=== PATIENT | female | born 1945 | race Hispanic/Latino ===

== ENCOUNTER 2020-09-29 10:35 | Inpatient (IN) | payer MEDICARE ==
[2020-09-29] MEDS ORDERED: Lidocaine 1% w/Epinephrine 1:100K 20 ML VIAL ONE (11:40)
[2020-09-29 14:44] LABS: #Eosinphils 0.3 thou/uL (0.0-0.7); #Lymphocytes 1.5 thou/uL (1.20-3.40); #Monocytes 0.7 thou/uL (0.11-0.59); #Neutrophils 7.6 thou/uL (1.40-6.50); %Eosinophils 2.9 % (0.0-10.0); %Lymphocytes 15.2 % (21.0-51.0); %Monocytes 6.5 % (0.0-10.0); %Neutrophils 75.4 % (42.0-75.0); Hemoglobin 12.3 g/dL (12.0-16.0); Mean Corpuscular Hemoglobin 32.1 pg (27.0-31.0); Mean Corpuscular Volume 97.3 fL (78.0-98.0); Mean Platelet Volume 7.8 fL (7.4-10.4); Platelet Count 208 thou/uL (130-400); RBC Distribution Width 12.9 % (11.5-14.5); Red Blood Cell (RBC) Count 3.85 mill/uL (4.20-5.40); White Blood Cell (WBC) Count 10.1 thou/uL (4.8-10.8)
[2020-09-29 15:13] LABS: ALT (SGPT) 13 U/L (8-55); AST (SGOT) 24 U/L (5-34); Albumin 3.7 g/dL (3.4-4.8); Alkaline Phosphatase 140 U/L (40-110); Anion Gap 16 mmol/L (10-20); BUN (Urea Nitrogen) 35 mg/dL (9.8-20.1); Bilirubin, Total 0.4 mg/dL (0.2-1.2); Calc. Creatinine Clearance 0 mL/min (70-130); Calcium 10.4 mg/dL (7.8-10.44); Carbon Dioxide 22 mmol/L (23-31); Chloride 102 mmol/L (98-107); Globulin 5.2 g/dL (2.4-3.5); Glucose 113 mg/dL (83-110); Potassium 3.8 mmol/L (3.5-5.1); Protein, Total 8.9 g/dL (5.8-8.1); Sodium 136 mmol/L (136-145)
[2020-09-29 16:16] VITALS: BMI 36.0
[2020-09-29] MEDS ORDERED: Acetaminophen 325 MG TAB PO PRN (16:30)
[2020-09-29] MEDS ORDERED: Ondansetron ODT 4 MG TAB SL PRN (16:30)
[2020-09-29] MEDS ORDERED: Ondansetron PF 4 MG/2 ML Vial IVP PRN (16:30)
[2020-09-29] MEDS ORDERED: HYDROcodone/Acetaminophen 5/325 mg Tablet PO PRN (16:30)
[2020-09-29] MEDS: Sodium Chloride 0.9% 1,000 ML IV SCH (17:47)
[2020-09-30] MEDS ORDERED: Milk Of Magnesia 30 ML UDCUP PO PRN (09:43)
[2020-09-30] MEDS ORDERED: Fentanyl 100 MCG/2 ML VIAL SLOW IVP PRN (09:43)
[2020-09-30] MEDS ORDERED: Communication Order-Pharmacy FS SCH (09:45)
[2020-09-30] MEDS ORDERED: CEFAZOLIN 2 GM in Premix Bag 1 BAG IVPB SCH (10:00)
[2020-09-30] MEDS: Sodium Chloride 0.9% 1,000 ML IV SCH (18:33)
[2020-09-30] MEDS: Atorvastatin Calcium 10 MG TAB PO SCH (20:13)
[2020-09-30] MEDS ORDERED: Simvastatin 20 MG TAB PO SCH (21:00)
[2020-10-01 05:30] LABS: #Basophils 0.1 thou/uL (0.0-0.2); #Eosinphils 0.3 thou/uL (0.0-0.7); #Lymphocytes 1.1 thou/uL (1.20-3.40); #Monocytes 0.6 thou/uL (0.11-0.59); #Neutrophils 5.3 thou/uL (1.40-6.50); %Basophils 0.7 % (0.0-1.0); %Eosinophils 3.9 % (0.0-10.0); %Lymphocytes 15.4 % (21.0-51.0); %Monocytes 7.5 % (0.0-10.0); %Neutrophils 72.5 % (42.0-75.0); Mean Corpuscular HGB CONC 32.8 g/dL (32.0-36.0); Mean Corpuscular Hemoglobin 32.2 pg (27.0-31.0); Mean Corpuscular Volume 97.9 fL (78.0-98.0); Mean Platelet Volume 7.5 fL (7.4-10.4); Platelet Count 197 thou/uL (130-400); Red Blood Cell (RBC) Count 3.44 mill/uL (4.20-5.40); White Blood Cell (WBC) Count 7.4 thou/uL (4.8-10.8)
[2020-10-01 05:57] LABS: Anion Gap 12 mmol/L (10-20); BUN (Urea Nitrogen) 31 mg/dL (9.8-20.1); Calc. Creatinine Clearance 43 mL/min (70-130); Calcium 9.8 mg/dL (7.8-10.44); Carbon Dioxide 24 mmol/L (23-31); Chloride 105 mmol/L (98-107); Glucose 94 mg/dL (83-110); Sodium 137 mmol/L (136-145)
[2020-10-01 06:55] LABS: SARS-CoV-2 NAA Rapid Test Not Detected (NotDetected)
[2020-10-01] MEDS ORDERED: Apixaban 2.5 MG TAB PO SCH (09:00)
[2020-10-01] MEDS ORDERED: Non-Formulary Item 1 EACH (Calcitriol [Calcitriol] 0.5 MCG Capsule) PO SCH (09:00)
[2020-10-01] MEDS ORDERED: Non-Formulary Item 1 EACH (Ferrous Sulfate [Ferrous Sulfate] 325 MG Tab) PO SCH (09:00)
[2020-10-01] MEDS: Amlodipine 10 MG TAB PO SCH (09:53)
[2020-10-01] MEDS: Cephalexin 250 MG CAP PO SCH (09:53)
[2020-10-01] MEDS: Calcitriol 0.25 MCG CAP PO SCH (09:53)
[2020-10-01] MEDS: Ferrous Sulfate 325 MG TAB PO SCH (09:54)
[2020-10-01] MEDS: Furosemide 40 MG TAB PO SCH (09:54)
[2020-10-01] MEDS ORDERED: Tobramycin Sulfate 1.2 GM VIAL ONE (10:39)
[2020-10-01] MEDS ORDERED: Fentanyl 100 MCG/2 ML VIAL ONE ×3 (11:15→13:57)
[2020-10-01] MEDS ORDERED: PROPOFOL 200 MG/20 ML VIAL ONE (11:45)
[2020-10-01] MEDS ORDERED: Lidocaine 1% PF 5 ML VIAL ONE ×2 (11:45)
[2020-10-01] MEDS ORDERED: Rocuronium Bromide 10 MG/ML (10ML VIAL) ONE (11:45)
[2020-10-01] MEDS ORDERED: PACU-Morphine 4MG/ML VIAL SLOW IVP PRN (12:43)
[2020-10-01] MEDS ORDERED: Ondansetron HCl/PF 4 MG/2 ML Vial IVP PRN (12:43)
[2020-10-01] MEDS ORDERED: Promethazine HCl 25 MG/ML VIAL IM PRN (12:43)
[2020-10-01] MEDS ORDERED: Promethazine HCl 25 MG/ML VIAL SLOW IVP PRN (12:43)
[2020-10-01] MEDS ORDERED: SUGAMMADEX SODIUM 200 MG/2 ML VIAL ONE (12:52)
[2020-10-01] MEDS ORDERED: HYDROmorphone 0.5 MG/0.5 ML SYRINGE ONE ×4 (13:35→14:05)
[2020-10-01] MEDS: Atorvastatin Calcium 10 MG TAB PO SCH (21:43)
[2020-10-01] MEDS: Enoxaparin Sodium 40 MG/0.4 ML SYRINGE SC SCH (21:43)
[2020-10-02] MEDS: HYDROcodone/Acetaminophen 5/325 mg Tablet PO PRN (05:41)
[2020-10-02 05:42] LABS: #Lymphocytes 0.5 thou/uL (1.20-3.40); #Monocytes 0.4 thou/uL (0.11-0.59); #Neutrophils 8.8 thou/uL (1.40-6.50); %Basophils 0.1 % (0.0-1.0); %Eosinophils 0.1 % (0.0-10.0); %Lymphocytes 5.3 % (21.0-51.0); %Monocytes 3.6 % (0.0-10.0); %Neutrophils 90.9 % (42.0-75.0); Hemoglobin 11.1 g/dL (12.0-16.0); Mean Corpuscular HGB CONC 34.2 g/dL (32.0-36.0); Mean Corpuscular Hemoglobin 33.2 pg (27.0-31.0); Mean Corpuscular Volume 97.3 fL (78.0-98.0); Mean Platelet Volume 7.7 fL (7.4-10.4); Platelet Count 193 thou/uL (130-400); RBC Distribution Width 12.5 % (11.5-14.5); Red Blood Cell (RBC) Count 3.34 mill/uL (4.20-5.40); White Blood Cell (WBC) Count 9.7 thou/uL (4.8-10.8)
[2020-10-02 06:00] LABS: Anion Gap 13 mmol/L (10-20); BUN (Urea Nitrogen) 29 mg/dL (9.8-20.1); Calc. Creatinine Clearance 48 mL/min (70-130); Calcium 9.2 mg/dL (7.8-10.44); Carbon Dioxide 22 mmol/L (23-31); Chloride 103 mmol/L (98-107); Glucose 131 mg/dL (83-110); Potassium 4.3 mmol/L (3.5-5.1); Sodium 134 mmol/L (136-145)
[2020-10-02] MEDS: Ferrous Sulfate 325 MG TAB PO SCH (09:46)
[2020-10-02] MEDS: Cephalexin 250 MG CAP PO SCH (09:46)
[2020-10-02] MEDS: Furosemide 40 MG TAB PO SCH (09:47)
[2020-10-02] MEDS: Calcitriol 0.25 MCG CAP PO SCH (09:47)
[2020-10-02] MEDS: Amlodipine 10 MG TAB PO SCH (09:48)
[2020-10-02] MEDS: Enoxaparin Sodium 40 MG/0.4 ML SYRINGE SC SCH ×2 (09:48→21:18)
[2020-10-02] MEDS: Atorvastatin Calcium 10 MG TAB PO SCH (21:18)
[2020-10-03] MEDS: Acetaminophen 325 MG TAB PO PRN (04:58)
[2020-10-03] MEDS: HYDROcodone/Acetaminophen 5/325 mg Tablet PO PRN (05:00)
[2020-10-03 05:27] LABS: #Basophils 0.1 thou/uL (0.0-0.2); #Eosinphils 0.2 thou/uL (0.0-0.7); #Lymphocytes 1.4 thou/uL (1.20-3.40); #Monocytes 0.8 thou/uL (0.11-0.59); #Neutrophils 7.7 thou/uL (1.40-6.50); %Basophils 0.8 % (0.0-1.0); %Eosinophils 2.3 % (0.0-10.0); %Lymphocytes 13.8 % (21.0-51.0); %Monocytes 7.4 % (0.0-10.0); %Neutrophils 75.6 % (42.0-75.0); Hemoglobin 10.6 g/dL (12.0-16.0); Mean Corpuscular HGB CONC 31.8 g/dL (32.0-36.0); Mean Corpuscular Hemoglobin 30.8 pg (27.0-31.0); Mean Platelet Volume 8.4 fL (7.4-10.4); Platelet Count 206 thou/uL (130-400); RBC Distribution Width 13.1 % (11.5-14.5); Red Blood Cell (RBC) Count 3.43 mill/uL (4.20-5.40); White Blood Cell (WBC) Count 10.2 thou/uL (4.8-10.8)
[2020-10-03 05:55] LABS: Anion Gap 16 mmol/L (10-20); BUN (Urea Nitrogen) 38 mg/dL (9.8-20.1); Calc. Creatinine Clearance 45 mL/min (70-130); Calcium 9.3 mg/dL (7.8-10.44); Carbon Dioxide 21 mmol/L (23-31); Chloride 101 mmol/L (98-107); Glucose 91 mg/dL (83-110); Potassium 4.5 mmol/L (3.5-5.1); Sodium 133 mmol/L (136-145)
[2020-10-03] MEDS: Calcitriol 0.25 MCG CAP PO SCH (08:33)
[2020-10-03] MEDS: Ferrous Sulfate 325 MG TAB PO SCH (08:33)
[2020-10-03] MEDS: Furosemide 40 MG TAB PO SCH (08:33)
[2020-10-03] MEDS: Amlodipine 10 MG TAB PO SCH (08:34)
[2020-10-03] MEDS: Enoxaparin Sodium 40 MG/0.4 ML SYRINGE SC SCH ×2 (08:34→21:18)
[2020-10-03] MEDS: Cefepime 2 GM in Sodium Chloride 0.9% 100 ML IVPB SCH (17:57)
[2020-10-03] MEDS: Atorvastatin Calcium 10 MG TAB PO SCH (21:18)
[2020-10-04 05:35] LABS: #Eosinphils 0.4 thou/uL (0.0-0.7); #Lymphocytes 0.6 thou/uL (1.20-3.40); #Monocytes 0.6 thou/uL (0.11-0.59); #Neutrophils 5.6 thou/uL (1.40-6.50); %Basophils 0.1 % (0.0-1.0); %Eosinophils 4.9 % (0.0-10.0); %Lymphocytes 8.6 % (21.0-51.0); %Monocytes 8.3 % (0.0-10.0); %Neutrophils 78.1 % (42.0-75.0); Hemoglobin 10.6 g/dL (12.0-16.0); Mean Corpuscular HGB CONC 31.1 g/dL (32.0-36.0); Mean Corpuscular Hemoglobin 30.3 pg (27.0-31.0); Mean Corpuscular Volume 97.2 fL (78.0-98.0); Mean Platelet Volume 7.7 fL (7.4-10.4); Platelet Count 191 thou/uL (130-400); Red Blood Cell (RBC) Count 3.51 mill/uL (4.20-5.40); White Blood Cell (WBC) Count 7.2 thou/uL (4.8-10.8)
[2020-10-04 05:55] LABS: Anion Gap 12 mmol/L (10-20); BUN (Urea Nitrogen) 42 mg/dL (9.8-20.1); Calc. Creatinine Clearance 42 mL/min (70-130); Calcium 9.5 mg/dL (7.8-10.44); Carbon Dioxide 25 mmol/L (23-31); Chloride 100 mmol/L (98-107); Glucose 97 mg/dL (83-110); Potassium 3.9 mmol/L (3.5-5.1); Sodium 133 mmol/L (136-145)
[2020-10-04] MEDS: Ferrous Sulfate 325 MG TAB PO SCH (09:46)
[2020-10-04] MEDS: Furosemide 40 MG TAB PO SCH (09:46)
[2020-10-04] MEDS: Calcitriol 0.25 MCG CAP PO SCH (09:46)
[2020-10-04] MEDS: Enoxaparin Sodium 40 MG/0.4 ML SYRINGE SC SCH ×2 (09:47→19:36)
[2020-10-04] MEDS: Amlodipine 10 MG TAB PO SCH (09:47)
[2020-10-04] MEDS: Acetaminophen 325 MG TAB PO PRN ×2 (09:54→19:39)
[2020-10-04] MEDS: HYDROcodone/Acetaminophen 5/325 mg Tablet PO PRN (09:54)
[2020-10-04] MEDS: Cefepime 2 GM in Sodium Chloride 0.9% 100 ML IVPB SCH (17:26)
[2020-10-04] MEDS: Atorvastatin Calcium 10 MG TAB PO SCH (19:36)
[2020-10-05] MEDS: HYDROcodone/Acetaminophen 5/325 mg Tablet PO PRN (05:21)
[2020-10-05 05:30] LABS: #Eosinphils 0.5 thou/uL (0.0-0.7); #Lymphocytes 0.8 thou/uL (1.20-3.40); #Monocytes 0.5 thou/uL (0.11-0.59); #Neutrophils 5.5 thou/uL (1.40-6.50); %Basophils 0.3 % (0.0-1.0); %Eosinophils 6.9 % (0.0-10.0); %Lymphocytes 10.6 % (21.0-51.0); %Monocytes 7.1 % (0.0-10.0); %Neutrophils 75.1 % (42.0-75.0); Hemoglobin 10.4 g/dL (12.0-16.0); Mean Corpuscular HGB CONC 31.3 g/dL (32.0-36.0); Mean Corpuscular Hemoglobin 30.7 pg (27.0-31.0); Mean Platelet Volume 7.5 fL (7.4-10.4); Platelet Count 184 thou/uL (130-400); RBC Distribution Width 13.2 % (11.5-14.5); Red Blood Cell (RBC) Count 3.38 mill/uL (4.20-5.40); White Blood Cell (WBC) Count 7.3 thou/uL (4.8-10.8)
[2020-10-05 06:01] LABS: Anion Gap 11 mmol/L (10-20); BUN (Urea Nitrogen) 43 mg/dL (9.8-20.1); Calc. Creatinine Clearance 36 mL/min (70-130); Calcium 9.4 mg/dL (7.8-10.44); Carbon Dioxide 28 mmol/L (23-31); Chloride 101 mmol/L (98-107); Glucose 100 mg/dL (83-110); Potassium 3.8 mmol/L (3.5-5.1); Sodium 136 mmol/L (136-145)
[2020-10-05] MEDS: Ferrous Sulfate 325 MG TAB PO SCH (08:23)
[2020-10-05] MEDS: Furosemide 40 MG TAB PO SCH (08:23)
[2020-10-05] MEDS: Enoxaparin Sodium 40 MG/0.4 ML SYRINGE SC SCH (08:23)
[2020-10-05] MEDS: Calcitriol 0.25 MCG CAP PO SCH (08:23)
[2020-10-05] MEDS: Amlodipine 10 MG TAB PO SCH (08:24)
[2020-10-05] MEDS ORDERED: Apixaban 2.5 MG TAB PO SCH (09:00)
[2020-10-05] MEDS ORDERED: Sodium Chloride 0.9% 1,000 ML IV SCH (11:45)
[2020-10-05] MEDS: Cefepime 2 GM in Sodium Chloride 0.9% 100 ML IVPB SCH (17:20)
[2020-10-05 20:27] VITALS: BP 128/70; TEMP 97.6
== END 2020-10-05 20:23 | disposition home health service (06) | DRG 464 ==
LOC: ERS 10:35 → SURG B 14:20
PROVIDERS: ADMIT Orthopaedic Surgery; ATTEND Orthopaedic Surgery
PROC: 0J9P3ZZ Drainage of Left Lower Leg Subcutaneous Tissue and Fascia, Percutaneous Approach (ICD-10-PCS; 2020-09-29)
PROC: 0SHD08Z Insertion of Spacer into Left Knee Joint, Open Approach (ICD-10-PCS; principal; 2020-10-01)
PROC: 0SBD0ZZ Excision of Left Knee Joint, Open Approach (ICD-10-PCS; 2020-10-01)
PROC: 0SPD09Z Removal of Liner from Left Knee Joint, Open Approach (ICD-10-PCS; 2020-10-01)
PROC: 02HV33Z Insertion of Infusion Device into Superior Vena Cava, Percutaneous Approach (ICD-10-PCS; 2020-10-04)
PROC: B518ZZA Fluoroscopy of Superior Vena Cava, Guidance (ICD-10-PCS; 2020-10-04)
PROC: B548ZZA Ultrasonography of Superior Vena Cava, Guidance (ICD-10-PCS; 2020-10-04)
DX: T84.54XA Infection and inflammatory reaction due to internal left knee prosthesis, initial encounter (principal); L02.416 Cutaneous abscess of left lower limb; N17.9 Acute kidney failure, unspecified; M86.8X6 Other osteomyelitis, lower leg; Z20.822 Contact with and (suspected) exposure to COVID-19; E78.5 Hyperlipidemia, unspecified; I10 Essential (primary) hypertension; I95.9 Hypotension, unspecified; I48.91 Unspecified atrial fibrillation; I27.20 Pulmonary hypertension, unspecified; M15.9 Polyosteoarthritis, unspecified; E66.9 Obesity, unspecified; G47.30 Sleep apnea, unspecified; I87.2 Venous insufficiency (chronic) (peripheral); Y83.1 Surgical operation with implant of artificial internal device as the cause of abnormal reaction of the patient, or of later complication, without mention of misadventure at the time of the procedure; B96.5 Pseudomonas (aeruginosa) (mallei) (pseudomallei) as the cause of diseases classified elsewhere; B95.61 Methicillin susceptible Staphylococcus aureus infection as the cause of diseases classified elsewhere; Z79.899 Other long term (current) drug therapy; Z79.01 Long term (current) use of anticoagulants; Z68.36 Body mass index [BMI] 36.0-36.9, adult
CPT/HCPCS: 10060; 36415; 36569; 80048; 80053; 85025; 85652; 86140; 87040; 87070; 87077; 87186; 87205; 93005; 93010; C1713; C1751; J0690; J0692; J1170; J1650; J2704; J3010; J3260; J3370; J3490; U0002

== ENCOUNTER 2021-03-07 10:48 | Inpatient (IN) | payer MEDICARE ==
[2021-03-07] MEDS ORDERED: Rocuronium Bromide 10 MG/ML (10ML VIAL) ONE (11:09)
[2021-03-07] MEDS ORDERED: Pantoprazole 40 MG VIAL ONE (11:23)
[2021-03-07] MEDS ORDERED: Sodium Bicarb 50 MEQ/50 ML Abboject 8.4% SYRINGE ONE (11:34)
[2021-03-07 11:35] LABS: Analyzer IN Cardio ER; Base Excess (BEa) -19.4 mEq/L (-2.0 to +3.0); CO2 Tension 30.2 mmHg (35.0-45.0); Calcium, Ionized (arterial) 1.18 mmol/L (1.12-1.30); Carboxyhemoglobin (COHb) 0.3 gm% (0.0-3.0); Hemoglobin (Hb) 9.5 g/dL (12.0-16.0); O2 Tension (PaO2), arterial 223.5 mmHg (> 70.0); Potassium - ABG Lab 5.49 mmol/L (3.70-5.30); Puncture Site RRA; pH, Arterial 7.09 (7.35-7.45)
[2021-03-07] MEDS ORDERED: Dextrose 50% Abboject 50 ML SYRINGE ONE (11:49)
[2021-03-07 12:04] LABS: Hemoglobin 8.9 g/dL (12.0-16.0); Mean Corpuscular HGB CONC 32.4 g/dL (32.0-36.0); Mean Corpuscular Hemoglobin 32.7 pg (27.0-31.0); Platelet Count 155 thou/uL (130-400); RBC Distribution Width 18.7 % (11.5-14.5); Red Blood Cell (RBC) Count 2.74 mill/uL (4.20-5.40); White Blood Cell (WBC) Count 21.1 thou/uL (4.8-10.8)
[2021-03-07 12:05] LABS: Mean Platelet Volume 9.5 fL (7.4-10.4)
[2021-03-07] MEDS ORDERED: Midazolam HCl 2 mg/2 ml Vial ONE (12:09)
[2021-03-07] MEDS ORDERED: Fentanyl CADD 100 ML IV SCH (12:15)
[2021-03-07 12:30] LABS: Anisocytosis SLIGHT = 6-15 cells (100X) (0-5/hpf); Band 36 % (5-11); Lymphocytes 5 % (21-51); MDiff Complete? YES; Macrocytosis SLIGHT = 6-15 cells (100X) (0-5/hpf); Metamyelocyte 4 % (0-0); Monocytes 7 % (0-10); Myelocyte 1 % (0-0); Neutrophil 42 % (42-75); Nucleated RBC 6 % (0); Platelet Morphology Comment Appears Adequate; Polychromasia MODERATE = 3-4 cells (100X) (0-2/hpf); Reactive Lymphocytes 5 % (0-10)
[2021-03-07 13:02] LABS: Actual Bicarbonate (HCO3a) 13.1 mEq/L (22-28); Analyzer IN Cardio ER; Base Excess (BEa) -13.9 mEq/L (-2.0 to +3.0); CO2 Tension 34.7 mmHg (35.0-45.0); Calcium, Ionized (arterial) 1.15 mmol/L (1.12-1.30); Carboxyhemoglobin (COHb) 0.3 gm% (0.0-3.0); Hemoglobin (Hb) 9.8 g/dL (12.0-16.0); O2 Tension (PaO2), arterial 184.3 mmHg (> 70.0); Potassium - ABG Lab 4.34 mmol/L (3.70-5.30)
[2021-03-07 13:02] LABS: CKMB 2.5 ng/mL (0-6.6)
[2021-03-07 13:03] LABS: ALV-art Gradient 271.425 mmHg (0-20); Puncture Site RRA
[2021-03-07] MEDS ORDERED: HUMAN PROTHROMBIN COMPLX IV SCH (13:15)
[2021-03-07] MEDS ORDERED: ADMIXTURE FEE IV SCH (13:15)
[2021-03-07 13:33] LABS: Bacteria/HPF 4+ HPF (None Seen); Bilirubin Negative (Negative); Blood, Urine Negative (Negative); Clarity Turbid (Clear); Glucose, Urine (Dipstick) Normal (Negative); Ketone, Urine Negative (Negative); Leukocyte 500 Leu/uL (Negative); Nitrite Negative (Negative); Protein, Urine (Dipstick) Negative (Neg-Trace); Specific Gravity, Urine 1.016 (1.002-1.036); Squamous Epithelial 0-3 HPF (0-3); Urobilinogen Normal mg/dL (Less than 2); WBC/HPF 21-50 HPF (0-3); pH, Urine 6.5 (5.0-9.0)
[2021-03-07 13:57] LABS: Albumin 1.9 g/dL (3.4-4.8)
[2021-03-07 13:59] LABS: Chloride 102 mmol/L (98-107); Potassium 4.9 mmol/L (3.5-5.1); Sodium 129 mmol/L (136-145)
[2021-03-07] MEDS ORDERED: Cefepime 2 GM VIAL ONE (13:59)
[2021-03-07 14:00] LABS: Glucose 143 mg/dL (83-110)
[2021-03-07 14:01] LABS: Globulin 2.9 g/dL (2.4-3.5); Protein, Total 4.8 g/dL (5.8-8.1)
[2021-03-07 14:02] LABS: Bilirubin, Total 0.5 mg/dL (0.2-1.2)
[2021-03-07 14:03] LABS: Alkaline Phosphatase 154 U/L (40-110); Calc. Creatinine Clearance 0 mL/min (70-130)
[2021-03-07 14:04] LABS: BUN (Urea Nitrogen) 116 mg/dL (9.8-20.1)
[2021-03-07 14:05] LABS: AST (SGOT) 194 U/L (5-34)
[2021-03-07 14:06] LABS: ALT (SGPT) 67 U/L (8-55); Magnesium 2.6 mg/dL (1.6-2.6)
[2021-03-07 14:11] LABS: Carbon Dioxide Less than 8 mmol/L (23-31)
[2021-03-07 14:20] LABS: SARS-CoV-2 NAA Rapid Test DETECTED (NotDetected)
[2021-03-07] MEDS ORDERED: Vancomycin 1 GM/200 ML BAG ONE (14:31)
[2021-03-07] MEDS ORDERED: Vancomycin 1 GM in Premix Bag 1 BAG IVPB SCH (15:30)
[2021-03-07] MEDS ORDERED: Norepinephrine 8 MG/0.9% NS 250 ML ONE (15:45)
[2021-03-07] MEDS ORDERED: DISCONTINUE PREVIOUS NARCOTIC PAIN MEDICATIONS AND BENZODIAZEPINES FS SCH (16:00)
[2021-03-07] MEDS ORDERED: Propofol 1,000 MG/100 ML VIAL IV PRN (16:00)
[2021-03-07] MEDS ORDERED: Propofol BOLUS 1,000 MG/100 ML VIAL IV PRN (16:00)
[2021-03-07] MEDS ORDERED: Fentanyl BOLUS 250 ML IVPB PRN (16:00)
[2021-03-07] MEDS ORDERED: Lorazepam 2 MG/ML VIAL SLOW IVP PRN (16:00)
[2021-03-07] MEDS ORDERED: Morphine 2 MG/ML VIAL SLOW IVP PRN (16:00)
[2021-03-07] MEDS ORDERED: Ventilator Sedation Protocol 1 EACH FS SCH (16:00)
[2021-03-07] MEDS ORDERED: Morphine 4 MG/ML VIAL SLOW IVP PRN (16:15)
[2021-03-07] MEDS ORDERED: Vancomycin 1 GM, Admixture Fee 1 EACH in Premix Bag 1 BAG IVPB SCH (16:15)
[2021-03-07 16:17] LABS: Lactic Acid 4.4 mmol/L (0.5-2.2)
[2021-03-07 16:45] LABS: Hemoglobin 10.4 g/dL (12.0-16.0)
[2021-03-07] MEDS ORDERED: Lactated Ringer's 1,000 ML IV SCH ×2 (16:45→20:45)
[2021-03-07 17:06] LABS: Troponin I 0.094 ng/mL (< 0.028)
[2021-03-07] MEDS: Cefepime 1 GM in Sodium Chloride 0.9% 100 ML IVPB SCH (18:03)
[2021-03-07 21:14] LABS: Troponin I 0.148 ng/mL (< 0.028)
[2021-03-07 22:38] LABS: Hemoglobin 8.8 g/dL (12.0-16.0)
[2021-03-07] MEDS: Vasopressin 20 UNIT, Admixture Fee 1 EACH in Sodium Chloride 0.9% 50 ML IV SCH (23:33)
[2021-03-07] MEDS: Pantoprazole 80 MG, Admixture Fee 1 EACH in Sodium Chloride 0.9% 100 ML IVPB SCH (23:33)
[2021-03-08 03:26] LABS: Magnesium 2.3 mg/dL (1.6-2.6)
[2021-03-08 03:27] LABS: ALT (SGPT) 165 U/L (8-55); AST (SGOT) 549 U/L (5-34); Albumin 1.9 g/dL (3.4-4.8); Alkaline Phosphatase 137 U/L (40-110); Anion Gap 17 mmol/L (10-20); BUN (Urea Nitrogen) 115 mg/dL (9.8-20.1); Bilirubin, Total 0.6 mg/dL (0.2-1.2); Calc. Creatinine Clearance 24 mL/min (70-130); Calcium 7.6 mg/dL (7.8-10.44); Carbon Dioxide 16 mmol/L (23-31); Chloride 102 mmol/L (98-107); Globulin 2.8 g/dL (2.4-3.5); Glucose 100 mg/dL (83-110); Potassium 4.8 mmol/L (3.5-5.1); Protein, Total 4.7 g/dL (5.8-8.1); Sodium 130 mmol/L (136-145)
[2021-03-08] MEDS: Norepinephrine 8 MG/0.9% NS 250 ML IVPB SCH (03:39)
[2021-03-08 03:57] LABS: Hemoglobin 9.9 g/dL (12.0-16.0); Mean Corpuscular HGB CONC 34.2 g/dL (32.0-36.0); Mean Corpuscular Hemoglobin 31.9 pg (27.0-31.0); Mean Corpuscular Volume 93.1 fL (78.0-98.0); Mean Platelet Volume 8.1 fL (7.4-10.4); Platelet Count 170 thou/uL (130-400); Red Blood Cell (RBC) Count 3.12 mill/uL (4.20-5.40)
[2021-03-08 04:00] LABS: Band 20 % (5-11); Lymphocytes 6 % (21-51); MDiff Complete? YES; Metamyelocyte 1 % (0-0); Monocytes 4 % (0-10); Myelocyte 3 % (0-0); Neutrophil 66 % (42-75); Nucleated RBC 6 % (0); Toxic Granulation SLIGHT
[2021-03-08] MEDS ORDERED: Digoxin 0.5 MG/2 ML AMP SLOW IVP SCH (04:45)
[2021-03-08] MEDS: Cefepime 1 GM in Sodium Chloride 0.9% 100 ML IVPB SCH ×2 (05:18→17:39)
[2021-03-08] MEDS: Vasopressin 20 UNIT, Admixture Fee 1 EACH in Sodium Chloride 0.9% 50 ML IV SCH ×3 (05:19→23:34)
[2021-03-08] MEDS ORDERED: Fentanyl CADD 100 ML ONE (07:09)
[2021-03-08] MEDS: Fentanyl CADD 100 ML IV SCH (07:20)
[2021-03-08] MEDS ORDERED: Cefepime 1 GM in Sodium Chloride 0.9% 100 ML IVPB SCH (09:00)
[2021-03-08 09:51] LABS: Hemoglobin 10.7 g/dL (12.0-16.0)
[2021-03-08] MEDS: Pantoprazole 80 MG, Admixture Fee 1 EACH in Sodium Chloride 0.9% 100 ML IVPB SCH (11:03)
[2021-03-08 12:47] LABS: Lactic Acid 3.7 mmol/L (0.5-2.2)
[2021-03-08] MEDS ORDERED: Lactated Ringer's 1,000 ML IV SCH (16:30)
[2021-03-08] MEDS ORDERED: FLU VACC QS2021-22(65YR UP)/PF 240 MCG/0.7 ML SYRINGE IM ONE (16:45)
[2021-03-08 18:13] LABS: Vancomycin, Random 10.3 ug/mL (See Comment)
[2021-03-08] MEDS ORDERED: Vancomycin HCl 750 MG in Sodium Chloride 0.9% 250 ML 250 ML IVPB SCH (19:45)
[2021-03-08] MEDS: Pantoprazole 40 MG VIAL IVP SCH (20:26)
[2021-03-09] MEDS ORDERED: Fentanyl CADD 100 ML ONE (01:24)
[2021-03-09] MEDS: Fentanyl CADD 100 ML IV SCH (01:27)
[2021-03-09] MEDS: Norepinephrine 8 MG/0.9% NS 250 ML IVPB SCH ×2 (03:25→13:24)
[2021-03-09 05:23] LABS: Hemoglobin 8.5 g/dL (12.0-16.0); Mean Corpuscular Volume 93.9 fL (78.0-98.0); Mean Platelet Volume 8.1 fL (7.4-10.4); Platelet Count 142 thou/uL (130-400); RBC Distribution Width 20.7 % (11.5-14.5); Red Blood Cell (RBC) Count 2.74 mill/uL (4.20-5.40); White Blood Cell (WBC) Count 19.2 thou/uL (4.8-10.8)
[2021-03-09 05:30] LABS: Phosphorus 6.4 mg/dL (2.3-4.7)
[2021-03-09] MEDS: Vasopressin 20 UNIT, Admixture Fee 1 EACH in Sodium Chloride 0.9% 50 ML IV SCH ×3 (05:33→21:17)
[2021-03-09 05:46] LABS: ALT (SGPT) 166 U/L (8-55); AST (SGOT) 413 U/L (5-34); Albumin 1.8 g/dL (3.4-4.8); Alkaline Phosphatase 160 U/L (40-110); Anion Gap 18 mmol/L (10-20); BUN (Urea Nitrogen) 117 mg/dL (9.8-20.1); Bilirubin, Total 0.7 mg/dL (0.2-1.2); Calc. Creatinine Clearance 0 mL/min (70-130); Calcium 6.9 mg/dL (7.8-10.44); Carbon Dioxide 15 mmol/L (23-31); Chloride 102 mmol/L (98-107); Globulin 2.5 g/dL (2.4-3.5); Glucose 83 mg/dL (83-110); Magnesium 2.3 mg/dL (1.6-2.6); Potassium 5.4 mmol/L (3.5-5.1); Protein, Total 4.3 g/dL (5.8-8.1); Sodium 130 mmol/L (136-145)
[2021-03-09 05:58] LABS: Band 17 % (5-11); Lymphocytes 17 % (21-51); MDiff Complete? YES; Monocytes 2 % (0-10); Neutrophil 64 % (42-75); Nucleated RBC 6 % (0)
[2021-03-09] MEDS: Cefepime 1 GM in Sodium Chloride 0.9% 100 ML IVPB SCH ×2 (06:23→17:23)
[2021-03-09] MEDS: Pantoprazole 40 MG VIAL IVP SCH ×2 (10:49→20:53)
[2021-03-09] MEDS: Amiodarone 450 MG in Dextrose 5% in Water 250 ML IVPB SCH ×2 (13:24→21:12)
[2021-03-09] MEDS ORDERED: Amiodarone 150 MG, Admixture Fee 1 EACH in Dextrose 5% in Water 100 ML IVPB SCH (14:00)
[2021-03-09] MEDS ORDERED: Sodium Bicarbonate 150 MEQ in Dextrose 5% in Water 1,000 ML IV SCH (16:30)
[2021-03-09 19:02] LABS: Vancomycin, Random 13.9 ug/mL (See Comment)
[2021-03-09] MEDS ORDERED: Vancomycin HCl 750 MG in Sodium Chloride 0.9% 250 ML 250 ML IVPB SCH (19:45)
[2021-03-10] MEDS: Norepinephrine 8 MG/0.9% NS 250 ML IVPB SCH ×3 (04:54→19:32)
[2021-03-10 04:55] LABS: ALT (SGPT) 205 U/L (8-55); AST (SGOT) 709 U/L (5-34); Albumin 1.5 g/dL (3.4-4.8); Alkaline Phosphatase 207 U/L (40-110); Anion Gap 21 mmol/L (10-20); BUN (Urea Nitrogen) 121 mg/dL (9.8-20.1); Bilirubin, Total 0.8 mg/dL (0.2-1.2); Calc. Creatinine Clearance 0 mL/min (70-130); Calcium 6.2 mg/dL (7.8-10.44); Carbon Dioxide 15 mmol/L (23-31); Chloride 100 mmol/L (98-107); Globulin 2.4 g/dL (2.4-3.5); Glucose 116 mg/dL (83-110); Phosphorus 6.9 mg/dL (2.3-4.7); Potassium 5.6 mmol/L (3.5-5.1); Protein, Total 3.9 g/dL (5.8-8.1); Sodium 130 mmol/L (136-145)
[2021-03-10 05:22] LABS: Magnesium 2.1 mg/dL (1.6-2.6)
[2021-03-10] MEDS: Cefepime 1 GM in Sodium Chloride 0.9% 100 ML IVPB SCH (05:24)
[2021-03-10 05:49] LABS: Hemoglobin 7.4 g/dL (12.0-16.0); MDiff Complete? YES; Mean Corpuscular HGB CONC 32.5 g/dL (32.0-36.0); Mean Corpuscular Hemoglobin 30.5 pg (27.0-31.0); Mean Corpuscular Volume 93.9 fL (78.0-98.0); Mean Platelet Volume 7.6 fL (7.4-10.4); Platelet Count 121 thou/uL (130-400); RBC Distribution Width 20.9 % (11.5-14.5); Red Blood Cell (RBC) Count 2.44 mill/uL (4.20-5.40); White Blood Cell (WBC) Count 19.2 thou/uL (4.8-10.8)
[2021-03-10 05:50] LABS: Band 20 % (5-11); Lymphocytes 8 % (21-51); Metamyelocyte 1 % (0-0); Monocytes 2 % (0-10); Neutrophil 69 % (42-75); Nucleated RBC 8 % (0); Polychromasia SLIGHT = 2-3 cells (100X) (0-2/hpf)
[2021-03-10] MEDS: Vasopressin 20 UNIT, Admixture Fee 1 EACH in Sodium Chloride 0.9% 50 ML IV SCH ×2 (08:02→18:55)
[2021-03-10] MEDS: Pantoprazole 40 MG VIAL IVP SCH ×2 (08:15→20:33)
[2021-03-10] MEDS ORDERED: Fentanyl CADD 100 ML ONE (10:12)
[2021-03-10] MEDS: Fentanyl CADD 100 ML IV SCH (10:15)
[2021-03-10] MEDS ORDERED: Furosemide 100 MG/10 ML VIAL SLOW IVP SCH (10:45)
[2021-03-10] MEDS: Albumin 25% 25 GM/100 ML BOT IVPB SCH ×3 (11:22→23:30)
[2021-03-10] MEDS: Amiodarone 450 MG in Dextrose 5% in Water 250 ML IVPB SCH (13:03)
[2021-03-10 13:35] LABS: Creatinine, Urine 43.79 mg/dL (47-110); Sodium, Urine Less than 20 mmol/L (Not Available)
[2021-03-10 19:06] LABS: Vancomycin, Random 19.9 ug/mL (See Comment)
[2021-03-10] MEDS: Nystatin Powder 15 GM BOT TOP SCH (20:34)
[2021-03-11] MEDS: Vasopressin 20 UNIT, Admixture Fee 1 EACH in Sodium Chloride 0.9% 50 ML IV SCH ×3 (03:05→19:18)
[2021-03-11] MEDS: Amiodarone 450 MG in Dextrose 5% in Water 250 ML IVPB SCH ×2 (03:06→19:18)
[2021-03-11 04:53] LABS: ALT (SGPT) 115 U/L (8-55); AST (SGOT) 278 U/L (5-34); Albumin 2.6 g/dL (3.4-4.8); Alkaline Phosphatase 206 U/L (40-110); Anion Gap 18 mmol/L (10-20); BUN (Urea Nitrogen) 124 mg/dL (9.8-20.1); Bilirubin, Total 1.4 mg/dL (0.2-1.2); Calc. Creatinine Clearance 19 mL/min (70-130); Calcium 6.1 mg/dL (7.8-10.44); Carbon Dioxide 17 mmol/L (23-31); Chloride 100 mmol/L (98-107); Globulin 1.8 g/dL (2.4-3.5); Glucose 94 mg/dL (83-110); Magnesium 2.1 mg/dL (1.6-2.6); Phosphorus 6.7 mg/dL (2.3-4.7); Potassium 5.1 mmol/L (3.5-5.1); Protein, Total 4.4 g/dL (5.8-8.1); Sodium 130 mmol/L (136-145)
[2021-03-11] MEDS: Albumin 25% 25 GM/100 ML BOT IVPB SCH ×3 (05:27→21:21)
[2021-03-11] MEDS: Norepinephrine 8 MG/0.9% NS 250 ML IVPB SCH ×3 (05:28→21:26)
[2021-03-11 05:41] LABS: Hemoglobin 5.6 g/dL (12.0-16.0)
[2021-03-11 06:50] LABS: Anisocytosis MODERATE=16-30 cells (100X) (0-5/hpf); Band 25 % (5-11); Lymphocytes 13 % (21-51); MDiff Complete? YES; Macrocytosis SLIGHT = 6-15 cells (100X) (0-5/hpf); Mean Corpuscular HGB CONC 33.5 g/dL (32.0-36.0); Mean Corpuscular Hemoglobin 31.4 pg (27.0-31.0); Mean Corpuscular Volume 93.6 fL (78.0-98.0); Mean Platelet Volume 8.3 fL (7.4-10.4); Metamyelocyte 2 % (0-0); Monocytes 4 % (0-10); Neutrophil 56 % (42-75); Nucleated RBC 4 % (0); Platelet Count 65 thou/uL (130-400); Platelet Morphology Comment Appears Decreased; Polychromasia SLIGHT = 2-3 cells (100X) (0-2/hpf); RBC Distribution Width 21.1 % (11.5-14.5); Red Blood Cell (RBC) Count 1.78 mill/uL (4.20-5.40); White Blood Cell (WBC) Count 11.7 thou/uL (4.8-10.8)
[2021-03-11] MEDS: Pantoprazole 40 MG VIAL IVP SCH ×2 (09:08→20:51)
[2021-03-11] MEDS: Nystatin Powder 15 GM BOT TOP SCH ×2 (09:09→20:51)
[2021-03-11 13:56] VITALS: BMI 35.5
[2021-03-11 15:48] LABS: Hemoglobin 7.8 g/dL (12.0-16.0); Platelet Count 52 thou/uL (130-400)
[2021-03-11 16:54] VITALS: TEMP 98.1
[2021-03-11 17:48] LABS: Vancomycin, Random 15.7 ug/mL (See Comment)
[2021-03-11] MEDS ORDERED: Vancomycin HCl 500 MG in Sodium Chloride 0.9% 100 ML IVPB SCH (18:15)
[2021-03-12] MEDS: Vasopressin 20 UNIT, Admixture Fee 1 EACH in Sodium Chloride 0.9% 50 ML IV SCH (02:59)
[2021-03-12] MEDS: Albumin 25% 25 GM/100 ML BOT IVPB SCH ×3 (03:14→14:47)
[2021-03-12 06:31] LABS: Hemoglobin 6.8 g/dL (12.0-16.0); Mean Corpuscular HGB CONC 34.7 g/dL (32.0-36.0); Mean Corpuscular Hemoglobin 29.5 pg (27.0-31.0); Mean Platelet Volume 9.4 fL (7.4-10.4); Platelet Count 32 thou/uL (130-400); RBC Distribution Width 20.2 % (11.5-14.5); White Blood Cell (WBC) Count 7.7 thou/uL (4.8-10.8)
[2021-03-12 06:52] LABS: Anisocytosis SLIGHT = 6-15 cells (100X) (0-5/hpf); Band 42 % (5-11); Lymphocytes 6 % (21-51); MDiff Complete? YES; Monocytes 5 % (0-10); Myelocyte 1 % (0-0); Neutrophil 46 % (42-75); Nucleated RBC 4 % (0); Platelet Morphology Comment Appears Decreased; Polychromasia SLIGHT = 2-3 cells (100X) (0-2/hpf); Toxic Granulation SLIGHT
[2021-03-12 07:03] LABS: ALT (SGPT) 68 U/L (8-55); AST (SGOT) 124 U/L (5-34); Albumin 3.3 g/dL (3.4-4.8); Alkaline Phosphatase 229 U/L (40-110); Anion Gap 23 mmol/L (10-20); BUN (Urea Nitrogen) 121 mg/dL (9.8-20.1); Bilirubin, Total 2.2 mg/dL (0.2-1.2); Calc. Creatinine Clearance 20 mL/min (70-130); Carbon Dioxide 13 mmol/L (23-31); Chloride 102 mmol/L (98-107); Globulin 1.5 g/dL (2.4-3.5); Glucose 93 mg/dL (83-110); Magnesium 1.9 mg/dL (1.6-2.6); Phosphorus 5.5 mg/dL (2.3-4.7); Potassium 3.8 mmol/L (3.5-5.1); Protein, Total 4.8 g/dL (5.8-8.1); Sodium 134 mmol/L (136-145)
[2021-03-12] MEDS ORDERED: Calcium Carbonate 500 MG ChewTAB PO SCH ×2 (09:45→21:00)
[2021-03-12] MEDS ORDERED: Sodium Bicarbonate 150 MEQ in Dextrose 5% in Water 850 ML IV SCH (09:45)
[2021-03-12] MEDS: Pantoprazole 40 MG VIAL IVP SCH (09:57)
[2021-03-12] MEDS: Nystatin Powder 15 GM BOT TOP SCH (09:57)
[2021-03-12] MEDS ORDERED: Scopolamine 1.5 mg/72 hour Patch TD SCH (13:45)
[2021-03-12 14:30] VITALS: BP 119/56
[2021-03-12] MEDS: Norepinephrine 8 MG/0.9% NS 250 ML IVPB SCH (15:12)
[2021-03-12] MEDS: Lorazepam 2 MG/ML VIAL SLOW IVP PRN ×2 (17:57→18:13)
[2021-03-12] MEDS: Morphine 4 MG/ML VIAL SLOW IVP PRN ×2 (17:57→18:09)
== END 2021-03-12 18:30 | disposition expired | DRG 870 ==
LOC: ERS 10:48 → CCU 11:50
PROVIDERS: ADMIT Internal Medicine; ATTEND Internal Medicine
PROC: 5A1955Z Respiratory Ventilation, Greater than 96 Consecutive Hours (ICD-10-PCS; principal; 2021-03-07)
PROC: 0BH17EZ Insertion of Endotracheal Airway into Trachea, Via Natural or Artificial Opening (ICD-10-PCS; 2021-03-07)
PROC: 8E0ZXY6 Isolation (ICD-10-PCS; 2021-03-07)
PROC: 30233N1 Transfusion of Nonautologous Red Blood Cells into Peripheral Vein, Percutaneous Approach (ICD-10-PCS; 2021-03-07)
PROC: 06JY3ZZ Inspection of Lower Vein, Percutaneous Approach (ICD-10-PCS; 2021-03-07)
PROC: 02H633Z Insertion of Infusion Device into Right Atrium, Percutaneous Approach (ICD-10-PCS; 2021-03-07)
PROC: B548ZZA Ultrasonography of Superior Vena Cava, Guidance (ICD-10-PCS; 2021-03-07)
PROC: 30283B1 Transfusion of Nonautologous 4-Factor Prothrombin Complex Concentrate into Vein, Percutaneous Approach (ICD-10-PCS; 2021-03-07)
PROC: 0D9670Z Drainage of Stomach with Drainage Device, Via Natural or Artificial Opening (ICD-10-PCS; 2021-03-07)
PROC: 3E043XZ Introduction of Vasopressor into Central Vein, Percutaneous Approach (ICD-10-PCS; 2021-03-07)
DX: A41.02 Sepsis due to Methicillin resistant Staphylococcus aureus (principal); L89.513 Pressure ulcer of right ankle, stage 3; R65.21 Severe sepsis with septic shock; U07.1 COVID-19; J96.01 Acute respiratory failure with hypoxia; G92.8 Other toxic encephalopathy; K72.00 Acute and subacute hepatic failure without coma; J15.212 Pneumonia due to Methicillin resistant Staphylococcus aureus; E87.1 Hypo-osmolality and hyponatremia; N17.9 Acute kidney failure, unspecified; N18.4 Chronic kidney disease, stage 4 (severe); D62 Acute posthemorrhagic anemia; T84.54XA Infection and inflammatory reaction due to internal left knee prosthesis, initial encounter; I48.20 Chronic atrial fibrillation, unspecified; J84.9 Interstitial pulmonary disease, unspecified; N39.0 Urinary tract infection, site not specified; K92.2 Gastrointestinal hemorrhage, unspecified; E87.2 Acidosis; Z66 Do not resuscitate; Z51.5 Encounter for palliative care; I87.8 Other specified disorders of veins; E78.5 Hyperlipidemia, unspecified; E78.00 Pure hypercholesterolemia, unspecified; R79.89 Other specified abnormal findings of blood chemistry; I25.10 Atherosclerotic heart disease of native coronary artery without angina pectoris; I12.9 Hypertensive chronic kidney disease with stage 1 through stage 4 chronic kidney disease, or unspecified chronic kidney disease; E66.01 Morbid (severe) obesity due to excess calories; Y83.1 Surgical operation with implant of artificial internal device as the cause of abnormal reaction of the patient, or of later complication, without mention of misadventure at the time of the procedure; R94.5 Abnormal results of liver function studies; L89.150 Pressure ulcer of sacral region, unstageable; E87.5 Hyperkalemia; E83.51 Hypocalcemia; Z78.1 Physical restraint status; Z68.35 Body mass index [BMI] 35.0-35.9, adult; Z79.899 Other long term (current) drug therapy; Z79.01 Long term (current) use of anticoagulants; L89.621 Pressure ulcer of left heel, stage 1
CPT/HCPCS: 0240U; 31500; 36415; 36416; 36430; 36600; 51702; 70450; 71045; 71250; 74177; 76705; 80053; 80202; 81003; 81015; 82274; 82553; 82570; 82805; 83605; 83735; 83880; 84100; 84145; 84300; 84484; 85007; 85025; 85027; 86140; 86850; 86900; 86901; 87040; 87070; 87077; 87086; 87186; 87205; 93005; 93010; 94002; 94003; 96361; 96365; 96366; 96375; 96376; 99292; C9113; J0282; J0692; J1160; J1940; J2060; J2250; J2270; J2704; J3010; J3370; J3490; J7050; J7070; J7120; J7168; P9016; P9047